=== PATIENT | female | born 1950 | race Hispanic/Latino ===

== ENCOUNTER → 2018-10-05 | Day surgery (SDC) | payer MEDICARE ==
[~2018-10-05] MED LIST: ATORVASTATIN CA20 MG PO; MIDAZOLAM HCL 2 MG/2 ML VIAL ONE; OR PHACO EYE KIT ONE; PREOP PHACO EYE KIT ONE
--- OUTSIDE RECORDS SUMMARY | 2018-10-05 12:41 | XMS REPORT | Summary of Care ---
Author Author [facility] Organization [facility] Address Unknown Phone Unavailable Encounter HQ Husam(ROBERT) [id number] Date(s): 07/28/17 - 07/28/17 [facility] [address] [place] [address]- [phone] Discharge Disposition: Home or Self Care Attending Physician: Diego Mireles MD Referring Physician: Diego Mireles MD Vital Signs 1 2 3 Most recent to oldest [Reference Range]: 154.94 cm (07/27/17 10:40 AM) Height 117/59 mmHg (07/28/17 10:21 AM) 113/69 mmHg (07/28/17 10:03 AM) 97/60 mmHg (07/28/17 9:47 AM) Blood Pressure [90-140/60-90 mmHg] 15 BRMIN (07/28/17 10:21 AM) 24 BRMIN *HI* (07/28/17 10:03 AM) 15 BRMIN (07/28/17 9:47 AM) Respiratory Rate [14-20 BRMIN] 74 bpm (07/28/17 8:53 AM) Peripheral Pulse Rate [60-100 bpm] 70.909 kg (07/27/17 10:40 AM) Weight 29.54 m2 (07/27/17 10:40 AM) Body Mass Index Problem List Condition Effective Dates Status Health Status Informant Constipation(Confirm Resolved ed) H/O Resolved osteoporosis(Confirm ed) HLD Resolved (hyperlipidemia)(Con firmed) Allergies, Adverse Reactions, Alerts Substance Reaction Severity Status NKDA Active Medications atorvastatin 20 mg oral tablet 20 mg=1 tab, PO, Bedtime, # 30 tab, 0 Refill(s) Start Date: 07/28/17 Status: Ordered Sodium Chloride 0.9% IV 1000 mL 1,000 mL, Rate: 25 ml/hr, Infuse over: 40 hr, Route: IV, Dosing Weight 70.909 kg , Total Volume: 1,000, Start date: 07/28/17 8:42:00 LOAN TELLER, Duration: 30 day, Stop date: 08/27/17 8:41:00 LOAN TELLER, 1.77, m2 Start Date: 07/28/17 Stop Date: 07/28/17 Status: Discontinued Results No data available for this section Immunizations No data available for this section Procedures Procedure Date Related Diagnosis Body Site Operation Social History Social History Type Response Smoking Status Never smoker; Exposure to Tobacco Smoke None; Cigarette Smoking Last 365 Days No; Reg Smoking Cessation Counseling No Assessment and Plan No data available for this section
--- OUTSIDE RECORDS SUMMARY | 2018-10-05 12:41 | XMS REPORT | Continuity of Care Document ---
Author Author [facility] Address Unknown Phone Unavailable Problems Problem Status Onset Date Classification Date Reported Comments Source Encounter for screening mammogram for malignant neoplasm of breast 10/20/2017 01/20/2018 [facility] ROUTINE Active 09/14/2017 [facility] UNK Active 06/30/2017 [facility] Z12.39 SCREENIGN MAMMGORAM M81.0 AGE-REL Active 04/02/2016 [facility] Constipation Resolved Problem 01/20/2018 [facility] H/O osteoporosis Resolved Problem 01/20/2018 [facility] HLD (<span ID="[id number]">Confirmed</span>) Resolved Problem 01/20/2018 [facility] ENCOUNTER FOR SCREENING FOR MALIGNANT NE Active [facility] ENCNTR SCREEN MAMMOGRAM FOR MALIGNANT NE Active [facility] Medications Medication Details Route Status Patient Instructions Ordering Provider Order Date Source atorvastatin 20 mg oral tablet 20 mg=1 tab, PO, Bedtime, # 30 tab, 0 Refill(s) Active 07/28/2017 [facility] Sodium Chloride 0.9% IV 1000 mL 1,000 mL, Rate: 25 ml/hr, Infuse over: 40 hr, Route: IV, Dosing Weight 70.909 kg, Total Volume: 1,000, Start date: 07/28/17 8:42:00 COMPUTER NETWORK ENGINEER, Duration: 30 day, Stop date: 08/27/17 8:41:00 COMPUTER NETWORK ENGINEER, 1.77, m2 Inactive 07/28/2017 [facility] Allergies, Adverse Reactions, Alerts Substance Category Reaction Severity Reaction type Status Date Reported Comments Source Immunizations Immunization Date Given Site Status Last Updated Comments Source Results Order Name Results Value Reference Range Date Interpretation Comments Source Chest 2 views DX Chest 2 views DX EXAM: XR CHEST 2 VIEWS DATE: 09/15/2018 10:36 COMPUTER NETWORK ENGINEER INDICATION: - pre operative clearance COMPARISON: None TECHNIQUE: PA and lateral chest radiographs FINDINGS: No lung parenchymal or pleural abnormalities are seen. Maday and pulmonary vasculature are normal. Cardiomediastinal silhouette is normal in appearance. Normal variant left apical pericardial fat pad is present. No acute bony abnormality is identified. IMPRESSION: No acute cardiopulmonary abnormality. 09/15/2018 - - Read by: Alex Mcclellan MD Dictated Date/time: 09/15/18 10:58 Electronically Signed by: Alex Mcclellan MD 09/15/18 10:59 FINAL REPORT [facility] Breast Mammo Scrn ASHER w cruz incl CAD MA Breast Mammo Scrn ASHER w cruz incl CAD MA BILATERAL DIGITAL SCREENING MAMMOGRAM 3D/2D WITH CAD: 10/14/2017 CLINICAL: /Routine. Current study was evaluated with a Computer Aided Detection (CAD) system. COMPARISON:Comparison is made to exams dated: 04/15/2016 mammogram, 10/06/2014 mammogram, and 06/17/2013 mammogram - [facility]. TECHNIQUE: Digital Breast Tomosynthesis was performed and utilized for Interpretation. [employer] Software Version 1.3 was utilized for computer aided detection. FINDINGS: There are scattered fibroglandular densities in both breasts. No significant masses, calcifications, or other findings are seen in either breast. There has been no significant interval change. IMPRESSION: NEGATIVE RECOMMENDATION:There is no mammographic evidence of malignancy. A 1 year screening mammogram is recommended.(10/15/2018) This exam was interpreted at [id number] for [facility]. Kalee Walsh M.D. ap/penrad:10/14/2017 12:00:13 Mill Recorder(s): Lisa Castillo [facility] letter sent: BI-RADS 1/2 Mammogram BI-RADS: 1 Negative 10/14/2017 - - Read by: Kalee Walsh MD Dictated Date/time: 10/14/17 12:00 Electronically Signed by: Kalee Walsh MD 10/14/17 12:00 FINAL REPORT [facility] Digital Mammo Screening Asher MA Digital Mammo Screening Asher MA - DIGITAL MAMMO SCREENING ASHER MA BILATERAL DIGITAL SCREENING MAMMOGRAM WITH CAD: 04/15/2016 CLINICAL: Routine. Current study was evaluated with a Computer Aided Detection (CAD) system. Comparison is made to exams dated: 10/06/2014 mammogram, 06/17/2013 mammogram - [facility], 08/16/2011 mammogram and 05/26/2009 mammogram. There are scattered fibroglandular densities in both breasts. No significant masses, calcifications, or other findings are seen in either breast. There has been no significant interval change. IMPRESSION: NEGATIVE There is no mammographic evidence of malignancy. A 1 year screening mammogram is recommended. Drew marshallt/penrad:04/15/2016 14:38:08 Mill Recorder: Ashley Mazariegos, [facility] This exam was dictated and interpreted by [id number] for [facility] Breast Edwards. letter sent: Normal exam Mammogram BI-RADS: 1 Negative 04/15/2016 - - Read by: Drew Pacheco MD Dictated Date/time: 04/15/16 14:38 Electronically Signed by: Drew Pacheco MD 04/15/16 14:38 FINAL REPORT [facility] Bone Density Scan Bone Density Scan Patient Name: NAREN MALIN : 1950; Age: 65 years y/o Female MR: [id number] Study: Bone Density Scan 04/15/2016 1:55 PM CDT Ordering Physician: Junior Henley MD Clinical Indication: M81.0 Age-related osteoporosis without current pathological fracture. Comparison: Density scan 06/17/2013 FINDINGS: The axial lumbar bone mineral density is 87% of the expected age matched bone mass with a T-score -2.8. Axial lumbar average BMD is 0.735 g/cm2. Increase in 3.4% The left femoral neck bone mineral density is 94% of the expected age matched bone mass with a T-score of -1.8. Left femoral neck BMD is 0.661 g/cm2. The total femoral BMD is 0.868 g/cm2. Increase in 0.6% IMPRESSION: 1. Osteoporosis of the lumbar spine. Bone mineral density is increased by 3.4% since the prior exam 2. Osteopenia of the left femoral neck. Bone mineral density is increased by 0.6% since the prior exam The World Health Organization has established that OSTEOPOROSIS occurs at -2.5 or more standard deviations (SD) below peak bone mass. OSTEOPENIA (low bone mass) occurs at -1.0 standard deviations to -2.5 standard deviations below peak bone mass. SL: [id number] 04/15/2016 - - Read by: Lex Padgett MD Dictated Date/time: 04/15/16 16:35 Electronically Signed by: Lex Padgett MD 04/15/16 16:37 FINAL REPORT [facility] Vital Signs Vital Sign Value Date Comments Source Systolic (mm Hg) 117 07/28/2017 [facility] Diastolic (mm Hg) 59 07/28/2017 [facility] Respitory Rate 15 07/28/2017 [facility] Systolic (mm Hg) 113 07/28/2017 [facility] Diastolic (mm Hg) 69 07/28/2017 [facility] Respitory Rate 24 07/28/2017 [facility] Systolic (mm Hg) 97 07/28/2017 [facility] Diastolic (mm Hg) 60 07/28/2017 [facility] Respitory Rate 15 07/28/2017 [facility] Heart Rate 74 07/28/2017 [facility] Height 154.94 cm 07/27/2017 [facility] BMI Calculated 29.54 07/27/2017 [facility] Weight 70.909 07/27/2017 [facility] Encounters Location Location Details Encounter Type Encounter Number Reason For Visit Attending Provider ADM Date DC Date Status Source [facility] Outpatient [id number] Stacie Johnson 10/06/2014 10/07/2014 [facility] Outpatient [id number] Junior Henley 04/15/2016 04/16/2016 [facility] Bedded Outpatient [id number] Diego Mireles 07/28/2017 07/28/2017 [facility] Outpatient [id number] Stacie Johnson 10/14/2017 10/15/2017 [facility] Procedures Procedure Code Date Perfomer Comments Source Operation [id number] [facility]
--- OUTSIDE RECORDS SUMMARY | 2018-10-05 12:41 | XMS REPORT | Summary of Care ---
Author Author [facility] Organization [facility] Address Unknown Phone Unavailable Encounter HQ Encntr_alias(FIN) [id number] Date(s): 10/14/17 - 10/14/17 [facility] [address] [place] [address]- Encounter Diagnosis Encounter for screening mammogram for malignant neoplasm of breast (Final) - 10/19/17 Discharge Disposition: Home or Self Care Attending Physician: Stacie Johnson MD Referring Physician: Stacie Johnson MD Vital Signs No data available for this section Problem List Condition Effective Dates Status Health Status Informant Constipation(Confirm Resolved ed) H/O Resolved osteoporosis(Confirm ed) HLD Resolved (hyperlipidemia)(Con firmed) Allergies, Adverse Reactions, Alerts Substance Reaction Severity Status NKDA Active Medications No data available for this section Results No data available for this section Immunizations No data available for this section Procedures Procedure Date Related Diagnosis Body Site Status Operation Completed Social History Social History Type Response Smoking Status Never smoker; Exposure to Tobacco Smoke None; Cigarette Smoking Last 365 Days No; Reg Smoking Cessation Counseling No entered on: 07/28/17 Assessment and Plan No data available for this section
--- OUTSIDE RECORDS SUMMARY | 2018-10-05 12:41 | XMS REPORT | Summary of Care ---
Author Organization Unknown Address Unknown Phone Unavailable Encounter HQ Encntr_alias(FIN) [id number] Date(s): 10/06/14 - 10/06/14 [facility] [id number] [place] [address] Discharge Disposition: Home Physician Attending: Stacie Johnson MD Physician_Referring: Stacie Johnson MD Reason for Visit ROUTINE Problem List No data available for this section Allergies, Adverse Reactions, Alerts No data available for this section Medications No data available for this section Medications Administered During Your Visit No data available for this section Immunizations No data available for this section
--- OUTSIDE RECORDS SUMMARY | 2018-10-05 12:41 | XMS REPORT | Summary of Care ---
Author Author [facility] Organization [facility] Address Unknown Phone Unavailable Encounter HQ Encntr_alias(FIN) [id number] Date(s): 04/15/16 - 04/15/16 [facility] [address] [place] [address]- Discharge Disposition: Home or Self Care Attending Physician: Junior Henley MD Referring Physician: Junior Henley MD Vital Signs No data available for this section Problem List No data available for this section Allergies, Adverse Reactions, Alerts No data available for this section Medications No data available for this section Results No data available for this section Immunizations No data available for this section Procedures No data available for this section Social History No data available for this section Assessment and Plan No data available for this section
[2018-10-05 16:20] VITALS: BP 139/82
== END | disposition home or self-care (01) ==
LOC: OR 12:38
PROVIDERS: ATTEND Ophthalmology
DX: H25.11 Age-related nuclear cataract, right eye (principal); E78.5 Hyperlipidemia, unspecified
CPT/HCPCS: 66984; J2250

== ENCOUNTER → 2018-10-19 | Day surgery (SDC) | payer MEDICARE ==
[2018-10-19 16:07] VITALS: BP 128/85
== END | disposition home or self-care (01) ==
LOC: OR 12:28
PROVIDERS: ATTEND Ophthalmology
DX: H25.12 Age-related nuclear cataract, left eye (principal); E78.5 Hyperlipidemia, unspecified
CPT/HCPCS: 66984; J2250